=== PATIENT | male | born 1940 | race Caucasian/White ===

== ENCOUNTER 2019-01-19 10:25 | Emergency (ER) | payer MEDICARE ==
[~2019-01-19] VITALS: Ht 170.2 cm; Wt 70.0 kg
[2019-01-19 11:23] LABS: HEMATOCRIT 46.7 % (39.0-50.0); HEMOGLOBIN 15.8 g/dl (14.0-18.0); IMMATURE GRANULOCYTES 0.2 % (0.0-5.0); MEAN CELL VOLUME 88.3 fL CALC (80.0-100.0); MEAN CORPUSCULAR HGB 29.9 pG CALC (26.0-32.0); MEAN CORPUSCULAR HGB CONC 33.8 g/L CALC (32.0-36.0); NEUT# 6.41 thou/uL (1.82-7.42); RED BLOOD COUNT 5.29 mill/uL (4.70-6.10); RED CELL DISTRI WIDTH 12.8 % (11.5-15.5)
[2019-01-19 11:26] LABS: GFR > 60 ML/MIN (>=60 (CALC)); GFR FOR AFR.AMER. > 60 ML/MIN (>=60 (CALC))
[2019-01-19 11:40] LABS: ACT PARTIAL THROMBO TIME 38.6 SECONDS (20.0-32.5); PROTHROMBIN TIME 20.9 SECONDS (9.0-12.5)
[2019-01-19 11:42] LABS: ALBUMIN 4.6 g/dL (3.2-5.0); ALKALINE PHOSPHATASE 93 u/l (38-126); ANION GAP 15 (6-22 (CALC)); BILIRUBIN, TOTAL 1.1 mg/dL (0.0-1.4); BUN 20 mg/dL (8-23); BUN/CREATININE RATIO 18 (12-20 (CALC)); CARBON DIOXIDE 25 mmol/l (22-30); CHLORIDE 104 mmol/l (95-108); CREATININE 1.1 mg/dL (0.7-1.3); GFR > 60 ML/MIN (>=60 (CALC)); GFR FOR AFR.AMER. > 60 ML/MIN (>=60 (CALC)); POTASSIUM 4.7 mmol/l (3.5-5.1); SGOT/AST 32 u/l (19-48); SODIUM 139 mmol/l (137-146); TOTAL PROTEIN 7.7 g/dL (6.3-8.2)
[2019-01-19 11:54] LABS: MYOGLOBIN 26 ng/mL (0 - 121)
[2019-01-19 11:58] LABS: URINE BILIRUBIN - DIPSTICK NEGATIVE (NEGATIVE); URINE BLOOD DIPSTICK NEGATIVE (NEGATIVE); URINE COLOR YELLOW; URINE GLUCOSE - DIPSTICK NEGATIVE (NEGATIVE); URINE KETONE NEGATIVE (NEGATIVE); URINE LEUK ESTERASE NEGATIVE (NEGATIVE); URINE NITRITE - DIPSTICK NEGATIVE (Negative); URINE PROTEIN - DIPSTICK NEGATIVE (NEG-TRACE); URINE SPECIFIC GRAVITY <=1.005; URINE UROBILINOGEN - DIPSTICK 0.2 E.U./dL (0.2)
[2019-01-19] MEDS ORDERED: BENAZEPRIL10 MG PO (13:45)
[2019-01-19 15:37] VITALS: BP 140/72
== END 2019-01-19 15:34 | disposition short-term general hospital (02) ==
LOC: ED 10:25
PROVIDERS: Emergency Medicine
DX: I63.9 Cerebral infarction, unspecified (principal); R47.01 Aphasia; R29.702 NIHSS score 2; I10 Essential (primary) hypertension
CPT/HCPCS: Q9967

== ENCOUNTER 2022-01-01 09:21 | Emergency (ER) | payer MEDICARE ==
[~2022-01-01] VITALS: Ht 170.2 cm; Wt 70.0 kg
[~2022-01-01 09:21] MED LIST: BENAZEPRIL10 MG PO
[2022-01-01 10:29] LABS: HEMATOCRIT 46.1 % (39.0-50.0); IMMATURE GRANULOCYTES 0.2 % (0.0-5.0); MEAN CELL VOLUME 89.5 fL CALC (80.0-100.0); MEAN CORPUSCULAR HGB 31.1 pG CALC (26.0-32.0); MEAN CORPUSCULAR HGB CONC 34.7 g/dL CAL (32.0-36.0); NEUT# 14.19 thou/uL (1.82-7.42); RED BLOOD COUNT 5.15 mill/uL (4.70-6.10); RED CELL DISTRI WIDTH 12.1 % (11.5-15.5)
[2022-01-01 10:47] LABS: ALBUMIN 3.9 g/dL (3.2-5.0); CREATININE 1.4 mg/dL (0.7-1.3); POTASSIUM 4.2 mmol/l (3.5-5.1); TOTAL PROTEIN 7.1 g/dL (6.3-8.2)
[2022-01-01 10:57] LABS: URINE BILIRUBIN - DIPSTICK NEGATIVE (NEGATIVE); URINE BLOOD DIPSTICK MODERATE (NEGATIVE); URINE COLOR YELLOW; URINE GLUCOSE - DIPSTICK NEGATIVE (NEGATIVE); URINE KETONE TRACE mg/dL (NEGATIVE); URINE LEUK ESTERASE NEGATIVE (NEGATIVE); URINE PH 5.5 (4.5-8.0); URINE PROTEIN - DIPSTICK NEGATIVE (NEG-TRACE); URINE UROBILINOGEN - DIPSTICK 0.2 E.U./dL (0.2)
[2022-01-01 11:00] LABS: BILIRUBIN, TOTAL 1.6 mg/dL (0.0-1.4)
[2022-01-01 11:07] LABS: URINE NITRITE - DIPSTICK NEGATIVE (Negative)
[2022-01-01] MEDS ORDERED: HYDROCHLOROTH12.5 M1 PO (19:26)
[2022-01-01] MEDS ORDERED: ASPIRIN81 MG PO (19:26)
[2022-01-01] MEDS ORDERED: MULTI VIT PO (19:27)
[2022-01-01] MEDS ORDERED: PREVAGEN10 MG PO (19:27)
[2022-01-01] MEDS ORDERED: AMOXICILLIN500 MG PO (19:28)
[2022-01-02 00:55] VITALS: BP 130/101
== END 2022-01-02 00:32 | disposition short-term general hospital (02) ==
LOC: ED 09:21
PROVIDERS: Family Medicine
DX: K56.600 Partial intestinal obstruction, unspecified as to cause (principal); I10 Essential (primary) hypertension; Z98.890 Other specified postprocedural states
CPT/HCPCS: J2060